=== PATIENT | female | born 1990 | race Two or more races ===

== ENCOUNTER 2018-05-31 12:48 | Outpatient (CLI) | payer OTHER ==
[~2018-05-31 12:48] MED LIST: INTESTINEX1 CAP PO; INTESTINEX680 MG PO; LEVSIN/SL0.125 MG PO; PEPCID40 MG PO; PHENABID D1 TAB.SR . PO; PHENERGAN25 MG PO; PROTONIX20 MG PO; PROTONIX40 MG PO; TYLENOL-CODEINE1 TAB PO; ZOFRAN ODT8 MG/UDTAB PO
== END 2018-05-31 13:03 | disposition home or self-care (01) ==
LOC: MAMO-SONO 12:48
DX: N60.11 Diffuse cystic mastopathy of right breast (principal); N60.12 Diffuse cystic mastopathy of left breast